=== PATIENT | female | born 1950 | race Native Hawaiian/Other Pacific Islander ===

== ENCOUNTER → 2020-12-02 | Outpatient (CLI) | payer OTHER, MEDICARE | LOC: INF 08:10 | PROVIDERS: ATTEND Internal Medicine | DX: Z23 Encounter for immunization (principal) | CPT/HCPCS: 96372 ==

== ENCOUNTER 2020-12-26 12:29 | Outpatient (CLI) | payer OTHER, MEDICARE | END 2020-12-26 23:59 | disposition home or self-care (01) | LOC: INF 12:29 | PROVIDERS: ATTEND Internal Medicine | DX: Z23 Encounter for immunization (principal) | CPT/HCPCS: 96372 ==

== ENCOUNTER 2021-03-13 10:06 | Outpatient (CLI) | payer OTHER, MEDICARE ==
[~2021-03-13] VITALS: Ht 152.4 cm; Wt 85.3 kg
== END 2021-03-13 11:30 | disposition home or self-care (01) ==
LOC: INF 10:06
PROVIDERS: ATTEND Internal Medicine Endocrinology, Diabetes & Metabolism
DX: M81.0 Age-related osteoporosis without current pathological fracture (principal)
CPT/HCPCS: 36415; 82310; 96372; J0897

== ENCOUNTER 2021-09-15 13:31 | Outpatient (CLI) | payer OTHER, MEDICARE ==
[~2021-09-15] VITALS: Ht 152.4 cm; Wt 85.3 kg
[2021-09-15 14:11] VITALS: BP 137/57; TEMP 98.6
== END 2021-09-15 19:04 | disposition home or self-care (01) ==
LOC: INF 13:31
PROVIDERS: ATTEND Internal Medicine Endocrinology, Diabetes & Metabolism
DX: M81.0 Age-related osteoporosis without current pathological fracture (principal)
CPT/HCPCS: 36415; 82310; J0897

== ENCOUNTER 2022-07-27 14:29 | Outpatient (CLI) | payer OTHER, MEDICARE ==
[~2022-07-27] VITALS: Ht 152.4 cm; Wt 90.7 kg
[2022-07-27 14:45] VITALS: BP 122/76; TEMP 98.2
== END 2022-07-27 23:00 | disposition home or self-care (01) ==
LOC: INF 14:29
PROVIDERS: ATTEND Internal Medicine
DX: M81.0 Age-related osteoporosis without current pathological fracture (principal)
CPT/HCPCS: 36415; 82310; 96372; J0897

== ENCOUNTER 2023-04-05 09:19 | Outpatient (CLI) | payer OTHER, MEDICARE | END 2023-04-05 20:47 | disposition home or self-care (01) | LOC: RAD 09:19 | PROVIDERS: ATTEND Internal Medicine | DX: N95.1 Menopausal and female climacteric states (principal); N95.8 Other specified menopausal and perimenopausal disorders ==